=== PATIENT | female | born 1970 | race Caucasian/White ===

== ENCOUNTER 2018-12-25 11:39 | Emergency (ER) | payer BC ==
[~2018-12-25] VITALS: Ht 170.2 cm; Wt 88.0 kg
[~2018-12-25 11:39] MED LIST: ALPR-623 PO; HYDR-4383 PO; MOT200T PO; NITR100C6 PO; NORCO10T PO
[2018-12-25 11:51] VITALS: BP 104/78
[2018-12-25 12:24] LABS: BASOPHILS % (AUTO) 0.4 % (0-1); EOSINOPHILS # (AUTO) 0.1 X10'3 (0-0.9); EOSINOPHILS % (AUTO) 0.8 % (0-6); HEMATOCRIT 43.7 % (35.0-45.0); HEMOGLOBIN 14.9 g/dl (12.0-16.0); LYMPHOCYTES # (AUTO) 1.8 X10'3 (1.1-4.8); LYMPHOCYTES % (AUTO) 21.5 % (21-51); MEAN CORPUSCULAR HEMOGLOBIN 33.5 PG (27.0-31.0); MEAN CORPUSCULAR VOLUME 98.7 FL (78-98); MEAN PLATELET VOLUME 9.3 FL (7.4-10.4); MONOCYTES # (AUTO) 0.7 X10'3 (0-0.9); MONOCYTES % (AUTO) 8.1 % (2-12); NEUTROPHILS # (AUTO) 5.8 X10'3 (1.8-7.7); NEUTROPHILS % (AUTO) 69.2 % (42-75); PLATELET COUNT 193 X10'3 (140-440); RED BLOOD COUNT 4.43 X10'6 (4.20-5.60); RED CELL DISTRIBUTION WIDTH 12.8 % (11.5-14.5); WHITE BLOOD COUNT 8.4 X10'3 (4.5-11.0)
[2018-12-25 12:38] LABS: PARTIAL THROMBOPLASTIN TIME 30 SECONDS (22-32); PROTHROMBIN TIME 10.4 SECONDS (9.0-12.0)
[2018-12-25 12:43] LABS: ALANINE AMINOTRANSFERASE 22 U/L (12-78); ALBUMIN 3.5 G/DL (3.4-5.0); ALBUMIN/GLOBULIN RATIO 0.9 (1.1-1.5); ALKALINE PHOSPHATASE 61 IU/L (46-116); ANION GAP 4 (8-16); ASPARTATE AMINO TRANSFERASE 12 U/L (10-37); BILIRUBIN,TOTAL 0.4 MG/DL (0.1-1.0); BLOOD UREA NITROGEN 9 MG/DL (7-18); BUN/CREATININE RATIO 13.2 (6.6-38.0); CALCIUM 8.9 MG/DL (8.5-10.1); CHLORIDE 106 MMOL/L (99-107); CREATININE 0.68 MG/DL (0.40-0.90); GLUCOSE 89 MG/DL (70-104); SODIUM 140 MMOL/L (135-145); TOTAL CARBON DIOXIDE 29.6 MMOL/L (24-32); TOTAL PROTEIN 7.4 G/DL (6.4-8.2); eGFR > 90 ML/MIN
--- NOTE | 2018-12-25 14:22 | NUR ---
c/o left shoulder pain with high blood pressure per home wrist bp cuff this morning. Pain started after taking a shower this morning around 1115. also c/o pressure in left upper arm. Hx anxiety/panic.
== END 2018-12-25 15:10 | disposition home or self-care (01) ==
LOC: ER 11:40
DX: S46.912A Strain of unspecified muscle, fascia and tendon at shoulder and upper arm level, left arm, initial encounter (principal); R68.84 Jaw pain; R07.89 Other chest pain; R61 Generalized hyperhidrosis; Z90.710 Acquired absence of both cervix and uterus; Z98.51 Tubal ligation status; X58.XXXA Exposure to other specified factors, initial encounter; Y93.89 Activity, other specified; Y92.89 Other specified places as the place of occurrence of the external cause; Y99.8 Other external cause status
CPT/HCPCS: 36415; 71045; 80053; 84484; 85025; 85610; 85730; 93005; 99284

== ENCOUNTER 2019-01-23 13:37 | Emergency (ER) | payer BC ==
[~2019-01-23] VITALS: Ht 170.2 cm; Wt 95.0 kg
[2019-01-23] MEDS ORDERED: DOXYCYCLINE 100MG CAPSULE PO STA (14:13)
[2019-01-23] MEDS ORDERED: DOXY100C43 PO (14:15)
[2019-01-23 15:00] VITALS: BP 119/77
== END 2019-01-23 15:01 | disposition home or self-care (01) ==
LOC: ER 13:38
DX: S80.811A Abrasion, right lower leg, initial encounter (principal); L03.115 Cellulitis of right lower limb; Z90.710 Acquired absence of both cervix and uterus; Z98.51 Tubal ligation status; Z88.8 Allergy status to other drugs, medicaments and biological substances; W10.9XXA Fall (on) (from) unspecified stairs and steps, initial encounter; Y93.89 Activity, other specified; Y92.89 Other specified places as the place of occurrence of the external cause; Y99.8 Other external cause status
CPT/HCPCS: 73590; 99283

== ENCOUNTER 2020-04-27 21:09 | Emergency (ER) | payer BC, MEDICAID ==
[~2020-04-27] VITALS: Ht 170.2 cm; Wt 80.0 kg
[2020-04-27 21:12] VITALS: BP 116/86
[2020-04-27] MEDS ORDERED: SULF1TAB49 PO (21:42)
[2020-04-27] MEDS ORDERED: sulfamethoxazole/trimethoprim DS (800/160mg) tablet PO ONE (21:45)
== END 2020-04-27 21:53 | disposition home or self-care (01) ==
LOC: ER 21:10
DX: L03.116 Cellulitis of left lower limb (principal); Z90.710 Acquired absence of both cervix and uterus; Z98.51 Tubal ligation status; Z98.890 Other specified postprocedural states; Z72.89 Other problems related to lifestyle; Z88.8 Allergy status to other drugs, medicaments and biological substances; Z79.899 Other long term (current) drug therapy
CPT/HCPCS: 99283

== ENCOUNTER 2020-05-04 17:54 | Emergency (ER) | payer MEDICAID ==
[~2020-05-04] VITALS: Ht 170.2 cm; Wt 90.9 kg
[~2020-05-04 17:54] MED LIST changes: +SULF1TAB49 PO
[2020-05-04 18:31] VITALS: BP 129/83
[2020-05-04] MEDS ORDERED: TETanus/Pertussis (Acell)/Diphther VAC/PF (Tdap-Adult) 0.5ml syringe IMVAC ONE (19:50)
[2020-05-04] MEDS ORDERED: LIDOcaine 1% W/epiNEPHrine 1:200,000 10ml vial IJ ONE (19:50)
== END 2020-05-04 20:59 | disposition home or self-care (01) ==
LOC: ER 17:55
DX: L02.416 Cutaneous abscess of left lower limb (principal); Z90.710 Acquired absence of both cervix and uterus; Z98.51 Tubal ligation status; Z98.890 Other specified postprocedural states; Z72.89 Other problems related to lifestyle; Z88.8 Allergy status to other drugs, medicaments and biological substances; Z79.899 Other long term (current) drug therapy
CPT/HCPCS: 10060; 99282

== ENCOUNTER 2020-11-08 18:53 | Emergency (ER) | payer MEDICAID ==
[~2020-11-08] VITALS: Ht 170.2 cm; Wt 90.0 kg
[~2020-11-08 18:53] MED LIST changes: -SULF1TAB49 PO
--- NOTE | 2020-11-08 19:52 | NUR ---
WENT TO PATIENT ROOM TO START IV DR LEE STATED THE PATIENT WILL NOT NEED AN IV
[2020-11-08 19:55] LABS: BASOPHILS # (AUTO) 0.1 X10'3 (0-0.2); BASOPHILS % (AUTO) 0.9 % (0-1); EOSINOPHILS # (AUTO) 0.4 X10'3 (0-0.9); EOSINOPHILS % (AUTO) 4.1 % (0-6); HEMATOCRIT 40.9 % (35.0-45.0); HEMOGLOBIN 13.7 g/dl (12.0-16.0); LYMPHOCYTES # (AUTO) 2.4 X10'3 (1.1-4.8); LYMPHOCYTES % (AUTO) 25.6 % (21-51); MEAN CORPUSCULAR HGB CONC 33.4 g/dL (33.0-36.5); MEAN CORPUSCULAR VOLUME 98.7 FL (78-98); MEAN PLATELET VOLUME 9.2 FL (7.4-10.4); MONOCYTES # (AUTO) 0.8 X10'3 (0-0.9); MONOCYTES % (AUTO) 8.3 % (2-12); NEUTROPHILS # (AUTO) 5.8 X10'3 (1.8-7.7); NEUTROPHILS % (AUTO) 61.1 % (42-75); PLATELET COUNT 263 X10'3 (140-440); RED BLOOD COUNT 4.14 X10'6 (4.20-5.60); RED CELL DISTRIBUTION WIDTH 12.6 % (11.5-14.5); WHITE BLOOD COUNT 9.5 X10'3 (4.5-11.0)
[2020-11-08 20:03] LABS: ALANINE AMINOTRANSFERASE 21 U/L (12-78); ALBUMIN 3.5 G/DL (3.4-5.0); ALBUMIN/GLOBULIN RATIO 0.8 (1.1-1.5); ALKALINE PHOSPHATASE 85 IU/L (46-116); ANION GAP 9 (8-16); ASPARTATE AMINO TRANSFERASE 20 U/L (10-37); BILIRUBIN,TOTAL 0.3 MG/DL (0.1-1.0); BLOOD UREA NITROGEN 16 MG/DL (7-18); BUN/CREATININE RATIO 18.6 (6.6-38.0); CALCIUM 8.8 MG/DL (8.5-10.1); CHLORIDE 105 MMOL/L (99-107); CREATININE 0.86 MG/DL (0.40-0.90); GLUCOSE 101 MG/DL (70-104); POTASSIUM 3.6 MMOL/L (3.5-5.1); SODIUM 141 MMOL/L (135-145); TOTAL PROTEIN 7.7 G/DL (6.4-8.2); eGFR 70 ML/MIN
--- NOTE | 2020-11-08 20:21 | NUR ---
PATIENT IS A CURRENT SMOKER WHO HAS REDUCED HER PACK A DAY HABIT SINCE 18 YO TO ABOUT 3 CIGARRETES DAILY
[2020-11-08 20:26] VITALS: BP 108/67
== END 2020-11-08 20:32 | disposition home or self-care (01) ==
LOC: ER 18:54
DX: R07.89 Other chest pain (principal); R42 Dizziness and giddiness; F41.9 Anxiety disorder, unspecified; F17.200 Nicotine dependence, unspecified, uncomplicated; R06.89 Other abnormalities of breathing; Z90.710 Acquired absence of both cervix and uterus; Z98.51 Tubal ligation status; Z72.89 Other problems related to lifestyle; Z88.8 Allergy status to other drugs, medicaments and biological substances; Z79.899 Other long term (current) drug therapy
CPT/HCPCS: 36415; 71045; 80053; 83880; 84484; 85025; 93005; 99285

== ENCOUNTER 2021-04-25 11:19 | Emergency (ER) | payer MEDICAID ==
[~2021-04-25] VITALS: Ht 170.2 cm; Wt 95.0 kg
[2021-04-25 11:22] VITALS: BP 128/70
[2021-04-25 12:00] LABS: CLARITY,URINE CLEAR (Clear); COLOR,URINE YELLOW (Yellow); GLUCOSE, URINE NEGATIVE (Neg); KETONES,URINE NEGATIVE (Neg); LEUKOCYTE ESTERASE ,URINE TRACE (Neg); NITRITES, URINE NEGATIVE (Neg); OCCULT BLOOD,URINE SMALL (Neg); PROTEIN,URINE NEGATIVE (Neg); UROBILINOGEN,URINE 0.2 E.U/dL (0.2-1.0)
[2021-04-25 12:04] LABS: UA COLLECTION TYPE CLN CATCH MIDSTREAM
[2021-04-25 12:06] LABS: SQUAMOUS EPITHELIAL CELL,UR NONE SEEN /LPF (FEW)
[2021-04-25 12:07] LABS: BACTERIA,URINE FEW /HPF (Neg); RBC,URINE 0-2 /HPF (0-2); WBC,URINE 0-4 /HPF (0-4)
[2021-04-25] MEDS ORDERED: PHEN-786 PO (12:07)
[2021-04-25] MEDS ORDERED: SULF1TAB45 PO (12:07)
== END 2021-04-25 12:34 | disposition home or self-care (01) ==
LOC: ER 11:20
DX: N39.0 Urinary tract infection, site not specified (principal); F41.9 Anxiety disorder, unspecified; Z98.51 Tubal ligation status
CPT/HCPCS: 81001; 87088; 99283

== ENCOUNTER 2021-06-18 14:01 | Emergency (ER) | payer MEDICAID ==
[~2021-06-18] VITALS: Ht 170.2 cm; Wt 90.9 kg
[~2021-06-18 14:01] MED LIST changes: +PHEN-786 PO
[2021-06-18 14:19] VITALS: BP 105/70
[2021-06-18] MEDS ORDERED: normal saline 1000ML IV soln IVB ONE (14:55)
[2021-06-18] MEDS ORDERED: ondansetron/PF 4mg/2ml inj IV ONE (14:55)
== END 2021-06-18 15:39 | disposition left against medical advice (07) ==
LOC: ER 14:03
DX: U07.1 COVID-19 (principal); R11.2 Nausea with vomiting, unspecified; F41.9 Anxiety disorder, unspecified; Z87.440 Personal history of urinary (tract) infections; Z90.710 Acquired absence of both cervix and uterus; Z98.51 Tubal ligation status; Z98.890 Other specified postprocedural states; Z72.89 Other problems related to lifestyle; Z88.8 Allergy status to other drugs, medicaments and biological substances; Z79.899 Other long term (current) drug therapy
CPT/HCPCS: 99281

== ENCOUNTER 2025-08-07 13:47 | Emergency (ER) | payer MEDICAID ==
[~2025-08-07] VITALS: Ht 170.2 cm; Wt 86.7 kg
[2025-08-07 13:53] VITALS: TEMP 97.5
[2025-08-07 15:44] LABS: MEAN PLATELET VOLUME 9.7 FL (7.4-10.4); RED CELL DISTRIBUTION WIDTH 13.1 % (11.5-14.5)
[2025-08-07 16:02] LABS: CREATININE 0.74 MG/DL (0.40-0.90); TOTAL CARBON DIOXIDE 29.6 MMOL/L (24-32); eCRCL 85 ML/MIN; eGFR 82 ML/MIN
[2025-08-07 18:41] VITALS: BP 132/65; PULSE 88; RESP 15; O2SAT 99
--- NOTE | 2025-08-07 19:47 | Physician Documentation ---
History of Present Illness ~ Chief Complaint: Leg Pain Stated Complaint: LEG PAIN Time Seen by MD: 15:23 Primary Medical Doctor: Zoila LILLY AT [facility] HPI Is a 55-year-old female that presents to the emergency department for evaluation of an area of redness warmth and swelling to the medial aspect of her right thigh. Patient reports that she is currently on Bactrim for a UTI. But believes that this is not associated medication. Patient denies fever chills nausea vomiting diarrhea at this time. 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 Patient is concerned about a clot today. Tetanus witin 5 years: Yes Medication Reconciliation Allergies: Coded Allergies: nitrofurantoin (Verified Adverse Reaction, Unknown, DIARRHEA, 08/07/25) Scheduled Alprazolam* (Xanax*), 0.25 MG PO PRN TID ANXIETY, (Reported) Hydrocodone Bit/Acetaminophen 10/325 MG* (Surrency 10/325 MG*), 1 TAB PO Q6H Nitrofurantoin Monohyd/M-Cryst (Macrobid 100 mg Capsule), 1 CAP PO Q12H Phenazopyridine Hcl (Pyridium tablet), 1 TAB PO Q8H Scheduled PRN Hydrocodone/Acetaminophen (Surrency 5-325 Tablet), 1 TABLET PO TID PRN for pain Ibuprofen* (Motrin*), 600 MG PO QID PRN, (Reported) Past Medical History Past Medical History: UTI, Anxiety Past Surgical History: hysterectomy, orthopedic surgeries, tubal ligation Alcohol Use: Occasionally Drug Use: none Lives with: Family Lives In: Home Occupation: employed Review of Systems ROS As stated above in the HPI, otherwise all systems are reviewed and negative. Physical Exam Vital Signs: Temperature: 97.5, Source: Temporal, Heart Rate: 88, Respiratory Rate: 15, BP: 132/65, Pulse Oximetry: 99, Weight: 86.700 Oxygen Flow Rate: 0 Physical Exam VITALS: Reviewed and as above. GENERAL: Alert, no apparent distress. HEENT: Normocephalic, atraumatic, PERRL, EOMI, dry mucosa, no erythema RESPIRATORY: Lungs clear, normal breath sounds, no respiratory distress. CHEST: No accessory muscle use, no retractions CV: Regular rate, rhythm, no edema, no murmur, No: JVD GI: Soft, non-tender, bowels sounds present, no rebound, guarding, or rigidity BACK: No CVA tenderness, or swelling MUSCULOSKELETAL No deformities, no edema SKIN: Warm and dry, free of erythema warmth and swelling to the medial aspect of the right thigh. NEURO: Oriented x4, No motor or sensory deficit PSYCH: Normal mood and affect, no agitation Progress Results/Orders Results/Orders Orders - HOLLY REYES [employer] Vl Venous (08/07/25 15:25) Vl Arterial (08/07/25 15:25) Completed Orders - HOLLY REYES Cbc/Diff (08/07/25 15:25) CMP (08/07/25 15:25) D-Dimer (08/07/25 15:25) Vl Venous (08/07/25 15:25) Vl Arterial (08/07/25 15:25) Vital Signs 08/07/25 08/07/25 13:53 18:41 Temp 97.5 Pulse 93 88 Resp 16 15 B/P (MAP) 110/77 132/65 (87) Pulse Ox 100 99 O2 Flow Rate 0 Laboratory Tests Test 08/07/25 15:36 White Blood Count 6.9 Red Blood Count 4.38 Hemoglobin 14.3 Hematocrit 42.5 Mean Corpuscular Volume 97.0 Mean Corpuscular Hemoglobin 32.7 H Mean Corpuscular Hemoglobin Concent 33.7 Red Cell Distribution Width 13.1 Platelet Count 194 Mean Platelet Volume 9.7 Neutrophils (%) (Auto) 58.1 Lymphocytes (%) (Auto) 29.8 Monocytes (%) (Auto) 9.6 Eosinophils (%) (Auto) 1.5 Basophils (%) (Auto) 1.0 Neutrophils # (Auto) 4.0 Lymphocytes # (Auto) 2.1 Monocytes # (Auto) 0.7 Eosinophils # (Auto) 0.1 Basophils # (Auto) 0.1 CBC Comment D-Dimer 0.36 D-Dimer Comment Sodium Level 139 Potassium Level 4.1 Chloride Level 103 Carbon Dioxide Level 29.6 Anion Gap 6 L Blood Urea Nitrogen 15 Creatinine 0.74 Estimated GFR/1.73 m2 82 BUN/Creatinine Ratio 20.3 H Glucose Level 99 Calcium Level 8.8 Total Bilirubin 0.1 Aspartate Amino Transf (AST/SGOT) 18 Alanine Aminotransferase (ALT/SGPT) 19 Alkaline Phosphatase 84 Total Protein 7.6 Albumin 3.6 Globulin 4.0 Albumin/Globulin Ratio 0.9 L Chemistry Comments Medical Decision Making Additional information obtaine: other Findings 55-year-old female presented with localized erythema, warmth, and swelling of the medial right thigh. No fever, chills, nausea, vomiting, or diarrhea. She is currently taking trimethoprim-sulfamethoxazole for a urinary tract infection, which is not believed to be related to her current symptoms. 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 Diagnostic evaluation: Venous and arterial ultrasounds were negative for thrombus. Laboratory studies were unremarkable, with no evidence of systemic infection or organ dysfunction. Assessment: Clinical findings are most consistent with mild nonpurulent cellulitis. No evidence of abscess, purulent drainage, or systemic inflammatory response syndrome (SIRS). No risk factors for MRSA (no penetrating trauma, injection drug use, or known colonization). The patient is immunocompetent and has no history of recurrent cellulitis. Medical decision-making: Antibiotic therapy: Initiated cephalexin for streptococcal coverage, as recommended by the [employer] [place] for typical cases of cellulitis without systemic signs of infection. Addition of MRSA-active agents (e.g., trimethoprim-sulfamethoxazole) is not indicated in uncomplicated, nonpurulent cellulitis. Supportive care: Advised elevation of the affected limb and attention to predisposing factors (e.g., dependent positioning). Duration: Recommended 5 days of therapy, with extension if clinical improvement is inadequate. Follow-up: Discharged with instructions to follow up with primary care provider for reassessment and to return for worsening symptoms or lack of improvement. Disposition: Patient is stable for outpatient management. No indication for blood cultures or hospitalization. No evidence of deep or necrotizing infection, immunocompromise, or poor adherence risk. Summary: This case represents uncomplicated cellulitis managed per current guidelines, with exclusion of vascular pathology and appropriate antibiotic selection. Patient education and follow-up are emphasized to ensure resolution and monitor for complications. General Diff Dx:Considerations: Include: Abrasion, Contusion, Fracture, Hematoma, Laceration, Malunion, Neurovascular injury, Open fracture, Sprain, Ulcer, Other Knee Diff Dx:Considerations: Include: Abrasion, Arthritis, Contusion, DJD, Fracture-femur, Fracture-fibula, Fracture-patella, Fracture-tibia, Gout, Hematoma, Laceration, Meniscus injury, Neurovascular injury, Open fracture, Rheumatoid arthritis, Septic, Sprain, Sprain-MCL, Sprain-LCL, Sprain-ACL, Sprain-PCL, Other Ankle Diff Dx:Considerations: Include: Abrasion, Arthritis, Contusion, DJD, Fracture-metatarsal, Fracture-fibula, Fracture-tarsal, Fracture-tibia, Gout, Hematoma, Laceration, Malunion, Neurovascular injury, Nonunion, Open fracture, Osteomyelitis, Rheumatoid arthritis, Sprain, Septic, Ulcer, Other Foot Diff Dx:Considerations: Include: Abrasion, Arthritis, Cellulitis, Contusion, Dislocation, DJD, Fracture-metatarsal, Fracture-phalynx, Fracture- tarsal, Gout, Hematoma, Ingrown toenail, Laceration, Malunion, Neurovascular injury, Open fracture, Paronychia, Puncture, Rheumatoid, Sprain, Septic, Subungual hematoma, Ulcer, Other Toe Diff Dx:Considerations: Include: Abrasion, Cellulitis, Contusion, Dislocation, Felon, Fracture, Hematoma, Laceration, Neurovascular injury, Open fracture, Paronychia, Subungual hematoma, Other Departure Disposition: HOME / SELF CARE / HOMELESS Impression: Primary Impression: Infection of skin Additional Impression: Cellulitis Condition: Stable Additional Instructions: 55-year-old female presented with localized erythema, warmth, and swelling of the medial right thigh. No fever, chills, nausea, vomiting, or diarrhea. She is currently taking trimethoprim-sulfamethoxazole for a urinary tract infection, which is not believed to be related to her current symptoms. 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 Diagnostic evaluation: Venous and arterial ultrasounds were negative for thrombus. Laboratory studies were unremarkable, with no evidence of systemic infection or organ dysfunction. Assessment: Clinical findings are most consistent with mild nonpurulent cellulitis. No evidence of abscess, purulent drainage, or systemic inflammatory response syndrome (SIRS). No risk factors for MRSA (no penetrating trauma, injection drug use, or known colonization). The patient is immunocompetent and has no history of recurrent cellulitis. Medical decision-making: Antibiotic therapy: Initiated cephalexin for streptococcal coverage, as recommended by the [employer] [place] for typical cases of cellulitis without systemic signs of infection. Addition of MRSA-active agents (e.g., trimethoprim-sulfamethoxazole) is not indicated in uncomplicated, nonpurulent cellulitis. Supportive care: Advised elevation of the affected limb and attention to predisposing factors (e.g., dependent positioning). Duration: Recommended 7 days of therapy, with extension if clinical improvement is inadequate. Follow-up: Discharged with instructions to follow up with primary care provider for reassessment and to return for worsening symptoms or lack of improvement. Disposition: Patient is stable for outpatient management. No indication for blood cultures or hospitalization. No evidence of deep or necrotizing infection, immunocompromise, or poor adherence risk. Summary: This case represents uncomplicated cellulitis managed per current guidelines, with exclusion of vascular pathology and appropriate antibiotic selection. Patient education and follow-up are emphasized to ensure resolution and monitor for complications. Referrals: NO PRIMARY CARE PROVIDER (PCP) Prescriptions Cephalexin*Monohydrate* (Keflex*) 500 Mg Capsule 1 CAP PO TID for 7 Days, #28 CAP Prov: HOLLY REYES 08/07/25 Education Educated: Patient Educated regarding: diagnosis, treatment, need for follow up HOLLY REYESP Aug 07, 2025 19:47
[2025-08-07] MEDS ORDERED: CEPH-585 PO (19:51)
--- NOTE | 2025-08-07 19:59 | VASCULAR REPORT ---
EXAM: VASC VL VENOUS HISTORY: Painful lumps of the thigh COMPARISON: None TECHNIQUE: Duplex Doppler evaluation of the deep venous system of the right lower extremity from the common femoral vein to the popliteal vein including color Doppler and spectral/pulsed waveform analysis was performed. FINDINGS: The common femoral vein demonstrates appropriate compressibility and waveform variability. There is compressibility/patency of the great saphenous vein at the proximal thigh. The femoral vein demonstrates appropriate compressibility and waveform variability. The deep femoral vein demonstrates appropriate compressibility and waveform variability. The popliteal vein demonstrates appropriate compressibility and waveform variability. There is normal compressibility at the tibioperoneal trunk. IMPRESSION: 1. No right femoropopliteal venous thrombosis. 2. If clinical concern/symptoms persist or worsen, short-interval follow-up study is suggested.
--- NOTE | 2025-08-07 19:59 | VASCULAR REPORT ---
EXAM: [facility] ARTERIAL INDICATION: Right thigh, painful lumps TECHNIQUE: Grayscale and color Doppler sonographic imaging evaluation of the right and left lower extremity arterial system was performed COMPARISON: None available at the time of dictation. FINDINGS: RIGHT LOWER EXTREMITY ARTERIES: Common femoral artery: 141 cm/s, triphasic Deep femoral artery: 86 cm/s, triphasic Proximal femoral artery: 89 cm/s, triphasic Mid femoral artery: 108 cm/s, triphasic Distal femoral artery: 81 cm/s, triphasic Popliteal artery: 41 cm/s, triphasic Posterior tibial artery: 63 cm/s, triphasic Dorsalis pedis artery: 40 cm/s, triphasic REFERENCE VALUES: Normal velocity ranges (in cm/sec) are as follows: SUSPECT [employer] SUPERVISOR 95-140, SFA 75-105, popliteal 54-84, tibial 41-81 cm/sec. Stenosis categories: 1.5-2.0 x normal velocity = 30-49%, 2.0-4.0 x normal velocity = 50- 75%, >4.0 x normal velocity = >75%. IMPRESSION: 1. No sonographic evidence of a right lower extremity arterial occlusion. Velocities as above.
== END 2025-08-07 20:37 | disposition home or self-care (01) ==
LOC: ER 13:47
DX: L03.115 Cellulitis of right lower limb (principal); F41.9 Anxiety disorder, unspecified; Z88.1 Allergy status to other antibiotic agents; Z90.710 Acquired absence of both cervix and uterus; Z79.2 Long term (current) use of antibiotics
CPT/HCPCS: 36415; 80053; 85025; 85379; 93926; 93971; 99284